=== PATIENT | male | born 1960 | race Caucasian/White ===

== ENCOUNTER → 2018-04-15 | Outpatient (CLI) | payer OTHER ==
[2018-04-15 14:06] LABS: BASOPHILS ABSOLUTE AUTO 0.06 K/mm3 (0.00-0.23); BASOPHILS PERCENT AUTO 1 % (0-2); EOSINOPHILS ABSOLUTE AUTO 0.18 K/mm3 (0.00-0.68); EOSINOPHILS PERCENT AUTO 2 % (0-6); Hematocrit 42.5 % (37.0-53.0); Hemoglobin 14.3 g/dL (13.5-17.5); IMMATURE GRAN ABSOLUTE AUTO 0.03 K/mm3 (0.00-0.10); IMMATURE GRAN PERCENT AUTO 0 % (0-1); LYMPHOCYTES ABSOLUTE AUTO 2.02 K/mm3 (0.84-5.20); LYMPHOCYTES PERCENT AUTO 23 % (21-46); MONOCYTES ABSOLUTE AUTO 0.67 K/mm3 (0.16-1.47); MONOCYTES PERCENT AUTO 8 % (4-13); Mean Corpuscular HGB 29.9 pg (26.0-34.0); Mean Corpuscular HGB Conc 33.6 g/dL (31.5-36.5); Mean Corpuscular Volume 89 fL (80-100); Mean Platelet Volume 11.6 fL (9.1-12.4); NEUTROPHILS ABSOLUTE AUTO 5.66 K/mm3 (1.96-9.15); NEUTROPHILS PERCENT AUTO 66 % (41-73); Platelet Count 293 K/mm3 (150-400); RDW Coefficient Variation 13.9 % (11.7-14.2); RDW Standard Deviation 45.1 fL (35.1-46.3); Red Blood Cell Count 4.79 M/mm3 (4.30-5.90); White Blood Cell Count 8.62 K/mm3 (4.00-11.30)
[2018-04-15 15:45] LABS: Alanine Aminotransfer (ALT/SGP 62 U/L (12-78); Albumin, Blood 3.8 g/dL (3.4-5.0); Alk Phos 54 U/L (50-136); Anion Gap 9 mmol/L (6-16); Aspartate Aminotrans (AST/SGOT 40 U/L (12-37); Bilirubin, Total 0.3 mg/dL (0.1-1.0); Blood Urea Nitrogen 11 mg/dL (8-24); Bun/Creatinine Ratio 15.5 (12.0-20.0); CO2, Blood 26 mmol/L (21-32); Calcium, Blood 9.4 mg/dL (8.5-10.1); Chloride, Blood 104 mmol/L (98-108); Creatinine, Blood 0.71 mg/dL (0.60-1.20); Glomerular Filtration Rate >60 (60-); Glucose, Blood 98 mg/dL (70-99); Potassium, Blood 3.7 mmol/L (3.5-5.5); Sodium, Blood 139 mmol/L (136-145); Total Protein, Blood 7.8 g/dL (6.4-8.2)
== END | disposition home or self-care (01) ==
LOC: LAB 13:36 → LAB SHORT 13:36
PROVIDERS: Nurse Practitioner Family
DX: I10 Essential (primary) hypertension (principal); B18.2 Chronic viral hepatitis C
CPT/HCPCS: 80053; 82105; 85025

== ENCOUNTER 2025-06-23 11:46 | Inpatient (IN) | payer OTHER ==
[~2025-06-23] VITALS: Ht 182.9 cm; Wt 62.6 kg
[2025-06-23 12:30] LABS: BASOPHILS ABSOLUTE AUTO 0.06 K/mm3 (0.00-0.23); BASOPHILS PERCENT AUTO 0 % (0-2); EOSINOPHILS ABSOLUTE AUTO 0.02 K/mm3 (0.00-0.68); EOSINOPHILS PERCENT AUTO 0 % (0-6); Hematocrit 39.2 % (37.0-53.0); Hemoglobin 13.4 g/dL (13.5-17.5); IMMATURE GRAN ABSOLUTE AUTO 0.05 K/mm3 (0.00-0.10); IMMATURE GRAN PERCENT AUTO 0 % (0-1); LYMPHOCYTES ABSOLUTE AUTO 1.05 K/mm3 (0.84-5.20); LYMPHOCYTES PERCENT AUTO 6 % (21-46); MONOCYTES ABSOLUTE AUTO 1.37 K/mm3 (0.16-1.47); MONOCYTES PERCENT AUTO 8 % (4-13); Mean Corpuscular HGB Conc 34.2 g/dL (31.5-36.5); Mean Corpuscular Volume 83 fL (80-100); NEUTROPHILS ABSOLUTE AUTO 14.07 K/mm3 (1.96-9.15); NEUTROPHILS PERCENT AUTO 85 % (41-73); NRBC ABSOLUTE 0.00 K/mm3 (0.00-0.02); NRBC Auto 0.0 /100 WBC (0.0-0.2); Platelet Count 372 K/mm3 (150-400); RDW Coefficient Variation 14.0 % (11.7-14.2); RDW Standard Deviation 42.2 fL (35.1-46.3)
[2025-06-23 12:32] LABS: Prothrombin Time Results 10.9 Sec (9.7-11.5)
[2025-06-23 12:42] LABS: Alanine Aminotransfer (ALT/SGP 48.0 U/L (12-78); Albumin, Blood 3.6 g/dL (3.4-5.0); Albumin/Globulin Ratio 0.9 (0.8-1.8); Anion Gap 6.0 mmol/L (3-11); Aspartate Aminotrans (AST/SGOT 42.0 U/L (12-37); Bilirubin, Total 0.7 mg/dL (0.1-1.0); Blood Urea Nitrogen 11.0 mg/dL (8-24); CO2, Blood 27.0 mmol/L (21-32); Calcium, Blood 9.3 mg/dL (8.5-10.1); Chloride, Blood 107.0 mmol/L (98-108); Creatinine, Blood 0.82 mg/dL (0.60-1.20); Globulin, Blood 4.0 g/dL (2.2-4.0); Glucose, Blood 130.0 mg/dL (70-99); Magnesium, Blood 1.7 mg/dL (1.6-2.4); Potassium, Blood 3.3 mmol/L (3.5-5.5); Sodium, Blood 137.0 mmol/L (136-145); Total Protein, Blood 7.6 g/dL (6.4-8.2)
[2025-06-23 13:44] LABS: Ethanol (Alcohol), Blood, Med <3 mg/dL; Salicylate 3.5 mg/dL (2.8-20.0)
[2025-06-23 14:35] LABS: Source, Urine Clean Catch
[2025-06-23 14:50] LABS: Bilirubin, Urine Neg (Neg); Glucose Qualitative, Urine Neg (Neg); Ketones, Urine 3+ (Neg); Leukocyte Esterase, Urine Neg (Neg); Protein, Urine 1+ (Neg); Specific Gravity, Urine 1.010 (1.003-1.022); Urobilinogen, Urine NORM (Normal)
[2025-06-23 14:58] LABS: Color, Urine Pale Yellow (P-Yellow)
[2025-06-23 15:01] LABS: White Blood Cells, Urine 0-2 /hpf (0-5)
[2025-06-23 15:06] LABS: U Amphetamine Screen Not Detected; U Barbituate Screen Not Detected; U Benzodiazapine Screen Not Detected; U Buprenorphine Screen Not Detected; U Cannabinoids Screen DETECTED; U Cocaine Screen Not Detected; U Methadone Screen Not Detected; U Methamphetamine Screen Not Detected; U Opiates Screen Not Detected; U Oxycodone Screen Not Detected; U Phencyclidine Screen Not Detected
[2025-06-23 16:41] LABS: Thyroid Stimulating Hormone 0.608 uIU/mL (0.360-4.800)
[2025-06-23 16:59] VITALS: BP 186/117
[2025-06-23] MEDS ORDERED: HydrALAZINE HCl 20 MG / ML 1ML Vial IV PRN (17:30)
--- NOTE | 2025-06-23 17:30 | NUR ---
ADMIT NOTE- PT ARRIVED ON MEDICAL FLOOR, SPEECH IS SLURRED, FACIAL DROOP IS BILATERAL, PT HAS WEAKNESS IN BOTH HANDS AND BOTH FEET, WHEN THIS RN ASKS HIM TO PERFORM AN ACTION SOMETIMES HE DOES IT AND SOMETIMES HE DOES THE OPPOSITE. CALLED DR HI THE PT NOW HAS A DIET ORDER. SERIOUS CONCERN FOR ASPIRATION ON THIS PT. NURSE BEDSIDE SWALLOW MAY SHOW THIS TIME HE CAN SWALLOW BUT HIS DIFFICULTY IS UNPREDICTABLE, SOMETIMES RIGHT AND SOMETIMES LEFT. RECIEVED NPO ORDERS AND SPEECH THERAPY AIMEE
--- NOTE | 2025-06-23 19:28 | NUR ---
SHIFT SUMMARY- PT HAS HAD NO ACUTE CHANGE SINCE ARRIVING ON MEDICAL FLOOR. PT HAS WOUNDS, PHOTOS TAKEN AND PLACED IN THE CHART. DASILVA WAS PLACED IN THE ED. MD AWARE. PT HAS SLIGHT SOLID WASTE COLLECTOR WITH THE RIGHT HAND, NONE WITH THE LEFT. INVOLONTARY GROSS MOTOR MOVEMENT OF THE RIGHT UPPER. LOWER AND LEFT UPPER EXTREMITY. BEDSIDE REPORT COMPLETED WITH THE NIGHT RN. PT LEFT AC IV DRESSING WAS COMING OFF. THE PT WAS SWEATY, OLD DRESSING REMOVED AND NEW ONE PLACED. IV FLUSHES WELL SL AT THE TIME OF BEDSIDE REPORT. PT HAS ELEVATED BP, THE MD WANTS TO ALLOW PERMISSIVE HYPERTENSION. ADMISSION IS COMPLETED TO THE BEST OF THIS RN'S ABILITY. THE PT CAN NOT ANSWER QUESTIONS WELL AND SPEECH IS UNCLEAR. PT IN BED, ON ROOM AIR, TELE SIN WITH PVC'S AT 62, CALL LIGHT IN REACH, DELIO SCORE IS 8. NIGHT RN AWARE, PT NEEDS FREQUENT REPOSITIONING. NO CURRENT S&S OF DISTRESS NOTED.
[2025-06-23 21:23] VITALS: BP 157/104
[2025-06-24 01:19] VITALS: BP 158/116
[2025-06-24 04:24] VITALS: BP 153/113
[2025-06-24 05:44] LABS: BASOPHILS ABSOLUTE AUTO 0.07 K/mm3 (0.00-0.23); BASOPHILS PERCENT AUTO 1 % (0-2); EOSINOPHILS ABSOLUTE AUTO 0.10 K/mm3 (0.00-0.68); EOSINOPHILS PERCENT AUTO 1 % (0-6); Hematocrit 44.7 % (37.0-53.0); Hemoglobin 14.9 g/dL (13.5-17.5); IMMATURE GRAN ABSOLUTE AUTO 0.05 K/mm3 (0.00-0.10); IMMATURE GRAN PERCENT AUTO 0 % (0-1); LYMPHOCYTES ABSOLUTE AUTO 1.84 K/mm3 (0.84-5.20); LYMPHOCYTES PERCENT AUTO 14 % (21-46); MONOCYTES ABSOLUTE AUTO 1.23 K/mm3 (0.16-1.47); MONOCYTES PERCENT AUTO 10 % (4-13); Mean Corpuscular HGB Conc 33.3 g/dL (31.5-36.5); Mean Corpuscular Volume 85 fL (80-100); NEUTROPHILS ABSOLUTE AUTO 9.55 K/mm3 (1.96-9.15); NEUTROPHILS PERCENT AUTO 74 % (41-73); NRBC ABSOLUTE 0.00 K/mm3 (0.00-0.02); NRBC Auto 0.0 /100 WBC (0.0-0.2); Platelet Count 382 K/mm3 (150-400); RDW Coefficient Variation 14.3 % (11.7-14.2); RDW Standard Deviation 44.1 fL (35.1-46.3)
[2025-06-24 06:03] LABS: Alanine Aminotransfer (ALT/SGP 63.0 U/L (12-78); Albumin, Blood 3.7 g/dL (3.4-5.0); Albumin/Globulin Ratio 0.9 (0.8-1.8); Anion Gap 8.0 mmol/L (3-11); Aspartate Aminotrans (AST/SGOT 111.0 U/L (12-37); Bilirubin, Total 0.7 mg/dL (0.1-1.0); Blood Urea Nitrogen 12.0 mg/dL (8-24); CO2, Blood 27.0 mmol/L (21-32); Calcium, Blood 9.8 mg/dL (8.5-10.1); Chloride, Blood 107.0 mmol/L (98-108); Creatinine, Blood 0.83 mg/dL (0.60-1.20); Globulin, Blood 4.2 g/dL (2.2-4.0); Glucose, Blood 105.0 mg/dL (70-99); Potassium, Blood 3.4 mmol/L (3.5-5.5); Sodium, Blood 139.0 mmol/L (136-145); Total Protein, Blood 7.9 g/dL (6.4-8.2)
--- NOTE | 2025-06-24 06:48 | NUR ---
SHIFT SUMMARY PT IS PLEASANT ALTHOUGH UPSET HE IS NPO. EXPLAINED TO PT SAFETY ASPIRATION RISK NEEDING TO BE EVALUATED BY ST IN AM. PT STATES "ALRIGHT" EACH TIME HE IS REMINDED. PT ATTEMPTED TO CLIMB OUT OF BED 3X DURING NIGHT. REMINDED PT HE IS ON BEDREST AND NEEDS TO STAY IN BED FOR SAFETY. BREAK NURSE USED LIFT TO PUT PT IN RECLINER. PT KICKED AND JERKED UNTIL HE WAS ALMOST COMPLETELY OUT OF THE CHAIR. THIS RN WITH ASSISTANCE FROM 2 OTHER STAFF MEMBERS USED LIFT TO GET PT BACK INTO BED AND RESTATED NEED TO KEEP PT IN BED. PT RESTING PEACEFULLY.
[2025-06-24 07:39] VITALS: BP 181/119
[2025-06-24] MEDS ORDERED: Enoxaparin 40 MG/0.4 ML SYR SC SCH (09:00)
[2025-06-24] MEDS ORDERED: Potassium Chl 10MEQ/Water100ML 100 ML IV ONE (09:10)
[2025-06-24 11:10] VITALS: BP 182/119
[2025-06-24] MEDS ORDERED: NS 250 ML IV PRN (11:25)
--- NOTE | 2025-06-24 14:37 | NUR ---
MET WITH PATIENT. DISCUSSED CASE WITH BSRN. PATIENT IS CURRENTLY SITTING UP AND ABLE TO ANSWER QUESTIONS. PATIENT IS PENDING MRI. PATIENTS BROTHER BLANCO [phone] IS NOT CURRENTLY ON CHART. BROUGHT INFORMATION TO MEDICAL RECORDS TO ADD TO PATIENTS CHART
[2025-06-24 17:02] VITALS: BP 186/118
--- NOTE | 2025-06-24 18:30 | NUR ---
SHIFT SUMMARY PATIENT ALERT AND INTERACTIVE. PATIENT IMPULSIVE AND WANTING TO SIT AT BEDSIDE MULTIPLE TIMES TODAY. PATIENT CONTINUES TO HAVE SLURRED HEAVY SPEECH. R LEG NOTED TO BE RESTLESS AT TIMES R ARM FLACID. L ARM WITH GROSS MOTOR MOVEMENT. PATIENT ABLE TO WORK WITH THERAPY TODAY AND STAND AT BEDSIDE. MRI DONE TODAY. BROTHER UPDATED RELATED TO PATIENT SITUATION AND ASSISTED WITH ANSWERING MRI QUESTIONS. SPEECH WORKED WITH PATIENT. PATIENT ADVANCED TO PUREED FOOD AND THIN LIQUIDS. COCCYX WOUND COVERED WITH MEPILEX AND PHOTOGRAPH NOTED ON CHART.
[2025-06-24 19:14] VITALS: BP 187/121
[2025-06-25 00:30] VITALS: BP 183/118
[2025-06-25 04:05] VITALS: BP 170/117
--- NOTE | 2025-06-25 05:06 | NUR ---
SHIFT SUMMARY NOC PT A/O TO SELF AND . CONFUSED AND FORGETFUL. BP ELEVATED 187/121 WITH PRN HYDRALAZINE GIVEN PER PARAMETERS. SEVERE L SIDED DEFICITS FROM RECENT CVA AND RESIDUAL R SIDED DEFICITS FROM PREVIOUS CVA. PT ON TELE SINUS WITH PVC'S AND OCCASIOUAL BLOCKED PAC'S, VERIFIED RHYTHM STRIP AND AGREE WITH RATE/RHYTHM. DASILVA IN PLACE DRAINING TO GRAVITY. PT REFUSING TO WEAR SCD'S. PT CURRENTLY RESTING WITH BED ALARM ON, BED IN LOWEST POSITION, AND CALL LIGHT WITHIN REACH.
[2025-06-25 07:10] VITALS: BP 158/116
[2025-06-25] MEDS ORDERED: HydrALAZINE HCl 20 MG / ML 1ML Vial IV PRN (08:50)
[2025-06-25 15:43] VITALS: BP 150/103
--- NOTE | 2025-06-25 17:23 | NUR ---
SHIFT SUMMARY PATIENT ALERT AND INTERACTIVE. PATIENT ABLE TO SIT UP AT SIDE OF BED WITH MINIMAL ASSISTANCE. PATIENT WORKED WITH THERAPY AGAIN TODAY. PATIENT HAD BARIUM SWALLOW TODAY. DIET ADVANCED. FAMILY IN TO SEE PATIENT. FAMILY WORKING ON [employer]ICA[employer] TO HELP WITH DISCHARGE PLAN. PATIENT CONTINUES TO NEED ASSISTANCE WITH FEEDING BECAUSE OF WEAKNESS AND PREVIOUS STROKE. PATIENT ABLE TO MAKE NEEDS KNOWN.
[2025-06-25 17:44] LABS: D-Dimer, Quantitative 0.76 mg/L FEU (0.00-0.52); Fibrinogen 399.0 mg/dL (170-430); Prothrombin Time Results 10.9 Sec (9.7-11.5)
[2025-06-25 19:21] VITALS: BP 154/103
[2025-06-26 00:56] VITALS: BP 172/109
[2025-06-26 04:22] VITALS: BP 168/104
--- NOTE | 2025-06-26 05:20 | NUR ---
SHIFT SUMMARY NOC PT A/O TO SELF. PLEASANTLY CONFUSED, BUT COOPERATIVE WITH CARE. BP STILL ELEVATD CLOSE TO PARAMETERS. ON TELE SINUS RHYTHM IN LOW 60'S, RHYTHM STRIP REVIEWED AND AGREE WITH RATE/RHYTHM. DASILVA IN PLACE FOR RETENTION WITH DARK YELLOW URINE. PT CURRENTLY RESTING WITH BED ALARM ON, BED IN LOWEST POSITION, AND CALL LIGHT WITHIN REACH.
[2025-06-26 06:15] LABS: BASOPHILS ABSOLUTE AUTO 0.07 K/mm3 (0.00-0.23); BASOPHILS PERCENT AUTO 1 % (0-2); EOSINOPHILS ABSOLUTE AUTO 0.28 K/mm3 (0.00-0.68); EOSINOPHILS PERCENT AUTO 3 % (0-6); Hematocrit 41.4 % (37.0-53.0); Hemoglobin 14.3 g/dL (13.5-17.5); IMMATURE GRAN ABSOLUTE AUTO 0.03 K/mm3 (0.00-0.10); IMMATURE GRAN PERCENT AUTO 0 % (0-1); LYMPHOCYTES ABSOLUTE AUTO 2.09 K/mm3 (0.84-5.20); LYMPHOCYTES PERCENT AUTO 23 % (21-46); MONOCYTES ABSOLUTE AUTO 1.13 K/mm3 (0.16-1.47); MONOCYTES PERCENT AUTO 12 % (4-13); Mean Corpuscular HGB Conc 34.5 g/dL (31.5-36.5); Mean Corpuscular Volume 84 fL (80-100); NEUTROPHILS ABSOLUTE AUTO 5.68 K/mm3 (1.96-9.15); NEUTROPHILS PERCENT AUTO 61 % (41-73); NRBC ABSOLUTE 0.00 K/mm3 (0.00-0.02); NRBC Auto 0.0 /100 WBC (0.0-0.2); Platelet Count 459 K/mm3 (150-400); RDW Coefficient Variation 14.4 % (11.7-14.2); RDW Standard Deviation 43.8 fL (35.1-46.3)
[2025-06-26 06:41] LABS: Alanine Aminotransfer (ALT/SGP 57.0 U/L (12-78); Albumin, Blood 3.2 g/dL (3.4-5.0); Albumin/Globulin Ratio 0.8 (0.8-1.8); Anion Gap 6.0 mmol/L (3-11); Aspartate Aminotrans (AST/SGOT 61.0 U/L (12-37); Bilirubin, Total 0.8 mg/dL (0.1-1.0); Blood Urea Nitrogen 17.0 mg/dL (8-24); CO2, Blood 30.0 mmol/L (21-32); Calcium, Blood 9.4 mg/dL (8.5-10.1); Chloride, Blood 105.0 mmol/L (98-108); Creatinine, Blood 0.92 mg/dL (0.60-1.20); Globulin, Blood 4.1 g/dL (2.2-4.0); Glucose, Blood 101.0 mg/dL (70-99); Potassium, Blood 4.0 mmol/L (3.5-5.5); Sodium, Blood 137.0 mmol/L (136-145); Total Protein, Blood 7.3 g/dL (6.4-8.2)
[2025-06-26 07:38] VITALS: BP 151/99
[2025-06-26 11:27] VITALS: BP 167/115
[2025-06-26 16:21] VITALS: BP 165/100
--- NOTE | 2025-06-26 18:17 | NUR ---
SHIFT SUMMARY PATIENT ALERT AND INTERACTIVE. UP TO CHAIR WITH THERAPY. PATIENT A 2 PERSON MAX ASSIST BACK TO BED BECAUSE OF FEET NOT MOVING. PATIENT ABLE TO STAND BUT UNABLE TO MOVE. PATIENT CONTINUES TO NEED TO BE ASSISTED WITH MEALS BECAUSE OF LIMITED MOVEMENT OF ARMS. PATIENT ABLE TO MAKE NEEDS KNOWN DRESSING CHANGED ON L SIDE OF COCCYX. WOUND APPEARS TO BE MORE OF AN ABRASION. AREA CLEANSED AND NEW DRY DRESSING APPLIED. NO FAMILY IN TO VISIT TODAY.
[2025-06-26 19:38] VITALS: BP 164/114
[2025-06-27 02:23] LABS: HOMOCYSTEINE, TOTAL 11 umol/L (0-15)
[2025-06-27 05:04] VITALS: BP 150/112
--- NOTE | 2025-06-27 06:45 | NUR ---
SHIFT SUMMARY PT ALERT, ORIENTED TO SELF AND PLACE, ABLE TO MAKE SOME NEEDS KNOWN HOWEVER PT DOES NOT UTILIZE THE CALL LIGHT. NO ACUTE CHANGES OVERNIGHT. PT REPORTS GENERALIZED PAIN, REPOSITIONING MODERATELY EFFECTIVE. PT APPEARED TO SLEEP WELL THIS SHIFT. ASPIRATION AND SAFETY PRECAUTIONS IN PLACE.
[2025-06-27 07:17] VITALS: BP 154/100
[2025-06-27] MEDS ORDERED: Folic Acid 1 MG TAB PO SCH (09:00)
[2025-06-27 10:47] LABS: ANTITHROMBIN, ENZYM (ACTIVITY) 114 % (76-128)
[2025-06-27 11:54] LABS: PROTEIN C FUNCTIONAL 112 % (83-168)
[2025-06-27 12:39] LABS: B2GLYCOPROTEIN 1, IGG ANTIBODY <10 SGU (<=20); B2GLYCOPROTEIN 1, IGM ANTIBODY <10 SMU (<=20)
[2025-06-27 15:19] VITALS: BP 173/103
[2025-06-27 15:36] VITALS: BP 140/99
[2025-06-27 16:38] VITALS: BP 159/98
--- NOTE | 2025-06-27 18:13 | NUR ---
PATIENT COOPERATIVE WITH CARE, LIKES TO SIT AT BEDSIDE WITH ASSISTANCE. PATIENT HAD A FALL THIS AFTERNOON, MD NOTIFIED. NO NEW ORDERS. YELLOW GOWN PLACED ON PATIENT AND BED ALARM RESET. PATIENT ENCOURAGED TO USE CALL LIGHT.
[2025-06-27 18:59] LABS: ANTI-XA QUALITATIVE INTERP Not Performed (Not Present); ANTICOAG MEDICATION NEUTRALIZ Not Performed (Not Performed); DRVVT 1:1 MIX RATIO Not Performed (<=1.20); DRVVT CONFIRMATION RATIO Not Performed (<=1.20); DRVVT SCREEN RATIO 0.81 (<=1.20); HEXAGONAL PHOSPHOLIPID CONFIRM Not Performed s (<=7.9); NEUTRALIZED DRVVT SCREEN RATIO Not Performed (<=1.20); NEUTRALIZED PTT-LA RATIO Not Performed (<=1.20); PROTHROMBIN TIME (PT) 12.4 s (12.0-15.5); PTT-LA RATIO 0.81 (<=1.20); THROMBIN TIME (TT) Not Performed s (<=19.5)
[2025-06-27 19:30] VITALS: BP 149/92
[2025-06-27 23:23] LABS: PROTEIN S AG FREE 78 % (74-147)
[2025-06-28 03:03] LABS: APC RESISTANCE 3.75 (>=2.00); FACTOR V LEIDEN BY PCR Not Done; FACV REF SPECIMEN Not Done
[2025-06-28 03:15] VITALS: BP 168/101
--- NOTE | 2025-06-28 06:28 | NUR ---
SHIFT SUMMARY PT A/Ox3, DISORIENTED TO SITUATION. VERBALIZING MORE, LESS EXPRESSIVE APHASIA NOTED HOWEVER PT DOES NOT USE CALL LIGHT APPROPRIATELY. PT REPORTS "SORE", GENERALIZED PAIN, PRN TYLENOL EFFECTIVE. Q2 TURNS COMPLETED. PT TOLERATED SIPS OF WATER AND WHOLE PILLS WITH APPLESAUCE WELL, NO COUGHING NOTED. EDUCATION PROVIDED ON TAKING SMALL SIPS OF FLUIDS.
[2025-06-28 09:06] VITALS: BP 187/103
[2025-06-28 09:08] VITALS: BP 162/118
[2025-06-28 14:45] VITALS: BP 143/108
--- NOTE | 2025-06-28 17:26 | NUR ---
SHIFT SUMMARY PT CONT LEVEL OF CARE. PT NOTED TO BE A&OX4 AND HAS CALLED APPROPRIATE THIS SHIFT ALONG WITH MAKING NEEDS KNOWN. PT HAS DANGLED AT THE EDGE OF BED FOR MEALS. PT NOTED TO BE ABLE TO FEED HIMSELF BUT CONT WITH NEEDING SOMEONE IN ROOM TO CONT TO REINFORCE TO TAKE SMALL BITES AND SIPS. PT CONT WITH DASILVA CATH AND NOTED TO BE DRAINING YELLOW URINE TO GRAVITY. PT NOTED TO BE WEAKER ON L SIDE VS R SIDE. PLAN IS TO GO TO SNF AWAITING PLACEMENT.
[2025-06-28 19:54] VITALS: BP 160/89
--- NOTE | 2025-06-29 05:26 | NUR ---
PT HAS L ARM WEAKNESS, L FACIAL DROOP. BLE ARE EQUAL IN STRENGTH. PUPILS ARE EQUAL ROUND AND REACTIVE TO LIGHT. PT IS A&OX4 BUT CONFUSED, HE ASKED FOR DEODERANT BUT BEGAN APPLYING IT TO HIS CHEEKS AND LIPS. PT WAS REDIRECTABLE, BUT DID NOT UNDERSTAND WHAT TO DO WITH THE DEODERANT. CHAP STICK WAS GIVEN AND PT USED APPROPRIATELY.
[2025-06-29 05:53] VITALS: BP 158/99
[2025-06-29 07:04] VITALS: BP 145/98
[2025-06-29 15:04] VITALS: BP 142/91
--- NOTE | 2025-06-29 18:30 | NUR ---
SHIFT SUMMARY PT CONT WITH LEVEL OF CARE. PT NOTED TO CONT WITH DIFFICULTY WITH CONTROLLING PAIN AND NEW MEDICATIONS WHERE ADDED THIS SHIFT AND PT STATED THEY HAVE HELPED. [facility] AND [facility].
--- NOTE | 2025-06-29 18:32 | NUR ---
SHIFT SUMMARY PT CONT LEVEL OF CARE WITH NO ACUTE CHANGES NOTED. PT CONT TO AWAIT ON PLACEMENT. PT CONT WITH DASILVA, AND ASSIST WITH EATING. PT HAS STAND PIVOT TO RECLINER FOR MEALS THIS SHIFT c ASSIST X2 WITH FWW AND GB
[2025-06-29 19:28] VITALS: BP 141/107
[2025-06-30 03:58] VITALS: BP 153/102
--- NOTE | 2025-06-30 05:39 | NUR ---
PT HAS L ARM WEAKNESS, L FACIAL DROOP. BLE ARE EQUAL IN STRENGTH. PUPILS ARE EQUAL ROUND AND REACTIVE TO LIGHT. PT IS A&OX4 ANSWERS QUESTIONS APPROPRIATY, FOLLOWS COMMANDS AND MAKES NEEDS KNOWN.
[2025-06-30 07:00] VITALS: BP 150/91
[2025-06-30 15:25] VITALS: BP 167/97
[2025-06-30 19:55] VITALS: BP 155/107
[2025-06-30] MEDS ORDERED: Arginine/Glutamine/Calcium Hmb 1 Packet PO SCH (21:00)
[2025-07-01 02:38] VITALS: BP 159/103
--- NOTE | 2025-07-01 04:39 | NUR ---
NIGHT SUMMARY: PT AOX4 OVERNIGHT, REPO Q 2 HOURS, DASILVA IN PLACE DRAINING APPROPRIATELY. MEPILEX CHANGED TO COCCYX. FLUIDS GIVEN, DRINKING APPROPRIATELY. CALL LIGHT WITHIN REACH AND CARE ROUNDS IN PLACE.
[2025-07-01 07:39] VITALS: BP 154/101
[2025-07-01] MEDS ORDERED: Polyethylene Glycol 3350 17 gm PO PRN (07:50)
[2025-07-01 12:27] LABS: PROTHROMBIN F2 G20210A VARIANT Heterozygous; PT PCR SPECIMEN Whole Blood
[2025-07-01 15:14] VITALS: BP 110/75
--- NOTE | 2025-07-01 19:15 | NUR ---
SUMMARY DR. CHAVEZ WAS NOTIFIED THIS AM OF PATIENT NOT HAVING A BOWEL MOVEMENT DOCUMENTED RECENTLY. 1X DOSE OF LACTULOSE WAS ORDERED WELL SCHEDULED SENNA TO START THIS EVENING. DR CHAVEZ ALSO INCREASED BLOOD PRESSURE MEDICATIONS AND STARTED ONE NEW ONE. PT A/OX4, ANSWERING ALL QUESTIONS APPROPRIATELY, HOWEVER VERY FORGETFUL AND DOES NOT CALL APPROPRIATELY. HIGH FALL RISK, BED ALARM AND CHAIR ALARM IN USE. NONSKID SOCKS ON PATIENT AND YELLOW GOWN ON PT. EATING WELL. BED BATH GIVEN TODAY.
[2025-07-01 19:49] VITALS: BP 150/99
[2025-07-01] MEDS ORDERED: Docusate Sodium/Senna 1 Tab PO SCH (21:00)
[2025-07-02 03:44] VITALS: BP 142/90
--- NOTE | 2025-07-02 05:06 | NUR ---
SHIFT SUMMARY: Pt is admitted for CVA and is a full code. Is alert and able to make needs known. ADLs have been mostly 1p but did not get out of bed. Denies pain or discomfort when asked. IVs to both ACs are patent with dressings that are CDI. berman in place and draining clear yellow urine.
[2025-07-02 07:29] VITALS: BP 133/84
[2025-07-02 16:37] VITALS: BP 133/90
--- NOTE | 2025-07-02 17:17 | NUR ---
SHIFT SUMMARY: PT ORIENTED X3. FORGETFUL AT TIMES. PLEASANT AND COOPERATIVE WITH CARE. PT HAD LARGE INCONTINENT BM THIS SHIFT. DASILVA IN PLACE DRAINING YELLOW URINE TO GRAVITY. NEW MEPILEX APPLIED TO SACRAL REGION. OOB c 2PA USING FWW AND GB. HIGH FALL RISK WITH YELLOW GOWN, BED/CHAIR ALARM ON. VSS. AWAITING PLACEMENT AT THIS TIME. REPORT FROM SPEECH THERAPY THIS AM STATING PTHAS BEEN REFUSING ST X2 DAYS NOW STATING HE SWALLOWS FINE AND DOES NOT NEED THIS SERVICE. SPOKE WITH DR. DONAHUE STATING TO D/C ST ORDER. CALL LIGHT IN REACH. BED IN LOWEST POSITION WITH ALARM ON.
[2025-07-02 19:33] VITALS: BP 151/89
--- NOTE | 2025-07-03 06:22 | NUR ---
SHIFT SUMMARY PT SLEPT INTERMITTENTLY DURING THE NIGHT. WEAKNESS CONTINUES LEFT GREATER THAN RIGHT, AND FACIAL DROOP CONTINUES. PT ABLE TO REPOSITION SELF IN BED. MEPELEX INTACT TO COCCYX, DASILVA DRAINING YELLOW URINE. PT DENIES PAIN DURING THE NIGHT.
[2025-07-03 06:33] VITALS: BP 139/86
[2025-07-03 07:52] VITALS: BP 137/83
[2025-07-03 16:30] VITALS: BP 132/89
--- NOTE | 2025-07-03 17:55 | NUR ---
NO CHANGES IN T STATUS TODAY. ALERT X3, NO C/O PAIN OR SOB
[2025-07-03 19:56] VITALS: BP 141/81
[2025-07-04 05:02] VITALS: BP 127/70
--- NOTE | 2025-07-04 05:37 | NUR ---
SHIFT SUMMARY PT SLEPT LONG INTERVALS DURING THE NIGHT. LEFT SIDED WEAKNESS CONTINUES. OOB TO BATHROOM WITH FWW/GB AND 2 ASSIST. PT CONT/INCONT OF STOOL. MEPELEX INTACT TO COCCYX. PT REPOSITIONS SELF IN BED. DASILVA DRAINING YELLOW URINE. BED ALARM ON FOR SAFETY. PT IMPULSIVE AT TIMES.
[2025-07-04 07:31] VITALS: BP 144/78
[2025-07-04 15:16] VITALS: BP 137/84
--- NOTE | 2025-07-04 17:34 | NUR ---
NO CHANGES FOR TPT TODAY. NO SOB, PAIN OR CHEST PAIN. PT VERY PLEASANT
[2025-07-04 19:31] VITALS: BP 129/79
[2025-07-05 04:52] VITALS: BP 143/95
--- NOTE | 2025-07-05 06:10 | NUR ---
SHIFT SUMMARY NO CHANGES FROM LAST 2 NIGHTS. PT INCONT OF BROWN STOOL X1. DASILVA DRAINING YELLOW URINE. PT ABLE TO REPOSITION SELF IN BED. MEPELEX INTACT TO SACRUM. LEFT SIDED WEAKNESS AND FACIAL DROOP CONTINUE. PT SLEPT LONG INTERVALS DURING THE NIGHT.
[2025-07-05 07:13] VITALS: BP 139/88
[2025-07-05 16:00] VITALS: BP 139/81
--- NOTE | 2025-07-05 16:56 | NUR ---
PATIENT A/O X3, FORGETFUL. VSS, ON RA. DENIES ANY PAIN OR DISCOMFORT. UP WITH 1-2PA, FWW AND GB. CHAIR/BED ALARM IN USE. INCONTINENT OF BOWEL TODAY. TOLERATING DIET AND EATING WELL. DASILVA IN PLACE WITH ADEQUATE U/O. NO NEW CONCERNS THIS SHIFT. AWAITING LTCM AND PLACEMENT.
[2025-07-05 19:26] VITALS: BP 129/89
[2025-07-06 04:52] VITALS: BP 143/89
--- NOTE | 2025-07-06 05:52 | NUR ---
SHIFT SUMMARY PT SLEPT LONG INTERVALS DURING THE NIGHT. INCONT BM X1. DASILVA DRAINING YELLOW URINE. PT WITH LOW GRADE FEVER DURING THE NIGHT- 99.6, 99.7. LEFT SIDED WEAKNESS AND FACIAL DROOP CONTINUE.
[2025-07-06 07:41] VITALS: BP 136/80
[2025-07-06 15:27] VITALS: BP 134/75
--- NOTE | 2025-07-06 18:02 | NUR ---
SHIFT SUMMARY: A&OX3-4 THIS SHIFT. COOPERATIVE WITH CARE PROVIDED. PT OUT OF BED A FEW TIMES TO SIT UP IN CHAIR. CONTINUES TO HAVE SIGNIFICANT DEFICITS AND WEAKNESS ON THE PTs LEFT SIDE. DASILVA CATHETER REMOVED THIS SHIFT. PT HAS HAD 2 CONTINENT VOIDS SINCE REMOVAL. MEDICATED PER EMAR. BREATHING EQUAL AND NON LABORED. HOB ELEVATED EATING DINNER AT THIS TIME. BED LOCKED AND IN THE LOWEST POSITION. CALL LT WITHIN REACH.
[2025-07-06 20:24] VITALS: BP 157/93
--- NOTE | 2025-07-07 04:50 | NUR ---
SUMMARY: PT A/OX3-4 AND SPECIFIES NEEDS WHEN STAFF IN ROOM BUT IS FORGETFULL AT TIMES. BED ALARM ON FOR FALL RISK AND OCC.IMPULSIVITY. HE CONT'S TO HAVE L.SIDE DEFICITS W/FACIAL DROOP AND WEAKNESS NOTED TO HIS L.SIDE. 1-2PA W/FWW AND GB REQUIRED OOB. HE USES URINAL AD ANGELICA AND IS CONTINENT/INCONTINENT W/ATTENDS CHANGED PRN. MEPILEX TO COCCYX REPLACED THIS SHIFT. NO ACUTE CHANGES, VSS/AFEBRILE. PLACEMENT PENDING INSURANCE AUTHORIZATION. WILL REPORT TO DAY RN.
[2025-07-07 05:06] VITALS: BP 139/90
[2025-07-07 07:40] VITALS: BP 118/82
[2025-07-07 15:42] VITALS: BP 118/80
--- NOTE | 2025-07-07 18:02 | NUR ---
SHIFT SUMMARY PT AOX3-4, 2 ASSIST TO THE BSC. BM THIS SHIFT. BA ON. NO ACUTE CHANGES OR COMPLAINTS. PT REPOSITIONS SELF IN BED. WAITING ON SNF AND INSURANCE AUTH. CALL LIGHT WITHIN REACH, BED LOCKED AND IN THE LOWEST POSITION. WILL REPORT TO ONCOMING NURSE.
[2025-07-07 19:21] VITALS: BP 128/79
[2025-07-08 03:47] VITALS: BP 150/88
--- NOTE | 2025-07-08 05:31 | NUR ---
RESIDENTIAL CARPENTER SUMMARY NO ACUTE CHANGES. MONITORED PT'S URINE OUTPUT. PT USING URINAL AND HAVIN INCONTINENCE. 1 COMPLETE BED CHANGE DONE. PT VOIDING REGLARLY, BLADDER SOFT AND NON TENDER. BED ALARM IN PLACE. CALL LIGHT ACCESSIBLE. REGULAR INTERVAL ROUNDING COMPLETE. CARE WILL CONTINUE UNTIL REPORT GIVEN TO ONCOMING NURSE.
[2025-07-08 08:03] VITALS: BP 133/81
[2025-07-08 15:34] VITALS: BP 135/82
[2025-07-08 19:23] VITALS: BP 144/80
--- NOTE | 2025-07-08 19:34 | NUR ---
NO ACUTE CHANGES. PT UP TO CHAIR FOR MEALS WITH 2 PERSON ASSIST. IMPULSIVE AT TIMES. CONT/INCONT. PENDING PLACEMENT
[2025-07-09 03:48] VITALS: BP 133/96
--- NOTE | 2025-07-09 04:07 | NUR ---
Shift Summary AOx3. Impulsive, sets bed alarm off to use urinal at the bedside. Independent with urinal usage in bed. Able to make needs known after setting alarm off. Bed alarm on, patient does not use call light appropriately. 1-2p w/ gb to ambulate. Mepilex to coccyx for prevention. DC pending Medicaid application approval and placement. Slept well through the night. No acute changes.
[2025-07-09 07:50] VITALS: BP 127/91
--- NOTE | 2025-07-09 17:52 | NUR ---
DAY SUMMARY NO ACUTE CHANGES THIS SHIFT, VSS, BEDRESTING AT THIS TIME, CALL LIGHT IN REACH, BED ALARM ACTIVE, WILL CONT TO MONITOR UNTIL REPORT GIVEN TO ONCOMING NURSE.
[2025-07-09 19:35] VITALS: BP 134/75
[2025-07-10 04:01] VITALS: BP 132/82
--- NOTE | 2025-07-10 06:02 | NUR ---
Shift Summary Patient voiding well using urinal. Denies pain. Pleasant. No acute events overnight. Meds whole 1 @ time w/ applesauce or puree. Awaiting LTC placement d/t multiple SNF refusals and medicaid approval.
[2025-07-10 08:07] VITALS: BP 123/87
[2025-07-10 15:57] VITALS: BP 116/84
--- NOTE | 2025-07-10 18:12 | NUR ---
SHIFT SUMMARY A/OX3, IMPULSIVE AT TIMES. LARGE BM AND BED BATH GIVEN THIS SHIFT. DENIES PAIN OR SOB. NO ACUTE CHANGES.
[2025-07-10 20:03] VITALS: BP 146/96
[2025-07-11 03:53] VITALS: BP 143/95
--- NOTE | 2025-07-11 06:07 | NUR ---
SHIFT SUMMARY A/Ox3, DISORIENTED TO SITUATION. VSS ON RA. NO ACUTE CHANGES OVERNIGHT. VOIDING WITH URINAL, SOME INCONTINENCE NOTED. PT DENIES PAIN, NAUSEA OR OTHER COMPLAINTS. SAFETY PRECAUTIONS IN PLACE.
[2025-07-11 07:34] VITALS: BP 136/89
--- NOTE | 2025-07-11 09:00 | NUR ---
pt laying in bed watching tv, a/ox3-4, pleasant and cooperative with care, a bit impulsive, follows commands well, denies pain, lungs are clear t/o, on r/a, no cough noted, hrr, no edema noted, ppp+1, cap refill <3 sec, vs stable,a febrile, piv to lac site is clear and patent, btx4, abd flat soft nontender, voids via urinal, skin c/w/d, maew left gold burnisher is weaker than right, right leg is weak but can move feet and dpfe is strong, jorge, call light in reach.
[2025-07-11 15:34] VITALS: BP 124/79
--- NOTE | 2025-07-11 18:09 | NUR ---
pt had an uneventful day, no acute changes this shift, call light in reach.
[2025-07-11 19:53] VITALS: BP 143/87
[2025-07-12 04:28] VITALS: BP 119/80
[2025-07-12 04:49] VITALS: BP 115/93
--- NOTE | 2025-07-12 06:32 | NUR ---
SHIFT SUMMARY PT A/Ox3, DISORIENTED TO SITUATION. VSS ON RA. NO ACUTE CHANGES OVERNIGHT. NO ADVERSE EVENTS NOTED WITH SWALLOWING. PT USED CALL LIGHT APPROPRIATELY X 1. APPEARED TO SLEEP WELL. PT DENIES PAIN, SOB, NAUSEA.
[2025-07-12 07:12] VITALS: BP 133/88
--- NOTE | 2025-07-12 08:41 | NUR ---
Pt laying in bed at the bottom of the bed, watching tv, a/ox3-4, pleasant and cooperative with care follows commands well, denies complaints of pain, lungs are clear t/o, resp even and unlabored, no cough noted, hrr, no edema noted, ppp+1, cap refill <3 sec, vs stable, afebrile, piv to lac site is clear and patent, btx4, abd flat soft nontender, voids without diff, skin has mepilex on coccyx, with scattered scabs, left leg weaker, reports his symptoms this time was right arm, residential energy auditor are eqal, sits himself up in bed and moves himself around indep, jorge, call light in reach.
[2025-07-12 15:59] VITALS: BP 127/82
--- NOTE | 2025-07-12 18:41 | NUR ---
no acute changes this shift, sits up on side of the bed, he feels hes improving, call light in reach.
--- NOTE | 2025-07-12 19:15 | NUR ---
BEDSIDE REPORT GIVEN. PT IN BED WATCHING TV. ON RA. RESP E/U. PARTICIPATED IN BS SHIFT REPORT. STATES NEEDS APPROPRIATELY. WILL CONTINUE TO PROVIDE CARE T/O SHIFT. CALL LT IN REACH. NO NEEDS AT THIS TIME.
[2025-07-12 19:36] VITALS: BP 150/97
--- NOTE | 2025-07-12 22:31 | NUR ---
PT RESTING QUIETLY. RESP E/U ON RA. CALL LT IN REACH.
--- NOTE | 2025-07-13 00:28 | NUR ---
PT RESTING QUIETLY. BED ALARM ON. CALL LT IN REACH.
--- NOTE | 2025-07-13 02:20 | NUR ---
CONTINUES TO REST QUIETLY. BED ALARM ON. CALL LT IN REACH.
[2025-07-13 04:43] VITALS: BP 127/85
--- NOTE | 2025-07-13 06:07 | NUR ---
SHIFT SUMMARY: NO ACUTE CHANGES. PT RESTED WELL T/O NIGHT. TOOK MEDS WHOLE IN APPLESAUCE WITHOUT DIFFICULTY, NO CHOKING OR COUGHING. USED URINAL IN BED INDEPENDENTLY. ABLE TO REPOSITIONED SELF IN BED. BED ALARM ON, PT DID NOT TRY AND GET OUT OF BED DURING THE NIGHT. ON RA. NO COMPLAINTS OF PAIN OR NAUSEA. STATES HE GETS A LITTLE SOB AT TIMES. PLAN IS PLACEMENT. WILL CONTINUE TO PROVIDE CARE UNTIL SHIFT REPORT TO ONCOMING NURSE. CALL LT IN REACH.
[2025-07-13 07:31] VITALS: BP 142/81
[2025-07-13 15:43] LABS: HEPATITIS C AB CIA INTERP High Pos (Negative); HEPATITIS C ANTIBODY CIA INDEX >11.00 IV
[2025-07-13 15:47] VITALS: BP 112/72
--- NOTE | 2025-07-13 17:12 | NUR ---
SHIFT SUMMARY: A&OX4 THROUGHOUT SHIFT, BUT CAN BE FORGETFUL. COOPERATIVE WITH CARE. AWAITING PLACEMENT TO D/C. FACILITY REPRESENTITIVES IN TO SEE AND SPEAK WITH PT. PT IS AMBULATORY TO THE BR WITH A 2P ASSIST AND IS A 1P ASSIST TO TRANSFER TO THE CHAIR. NO IV ACCESS ORDER PLACED THIS AFTERNOON. REPOSITIONS SELF IN BED INDEPENDENTLY. LYING IN BED AT THIS TIME. BED LOCKED AND IN THE LOWEST POSITION. BREATHING EQUAL AND NONLABORED. CALL LT WITHIN REACH. BED ALARM SET FOR SAFETY.
[2025-07-13 20:05] VITALS: BP 139/81
[2025-07-14 03:18] VITALS: BP 146/83
--- NOTE | 2025-07-14 06:08 | NUR ---
Shift Summary No acute changes. Pt slept well t/o the night. Using urinal at bedside. Answers questions is short one word answers, usually yes or no. Pt AOx3-4, some confusion.
[2025-07-14 07:20] VITALS: BP 129/87
[2025-07-14 15:50] VITALS: BP 131/95
--- NOTE | 2025-07-14 16:06 | NUR ---
PATIENT AWAKE AND COOPERATIVE WITH CARES TODAY. CALL LIGHT USED WHEN NEEDING ASSISTANCE, FAMILY AT BEDSIDE FOR PAPERWORK ASSISTANCE TO PLACE PATIENT IN [facility] HOME WHEN AVAILABILITY COMES UP. PATIENT ABLE TO ANSWER SOME QUESTIONS.
[2025-07-14 19:44] VITALS: BP 131/82
[2025-07-14 22:44] LABS: HCV QNT BY NAAT (IU/ML) 1710000 IU/mL; HCV QNT BY NAAT (LOG IU/ML) 6.23; HCV QNT BY NAAT INTERP Detected (Not Detected)
[2025-07-15 03:55] VITALS: BP 140/89
--- NOTE | 2025-07-15 05:51 | NUR ---
SHIFT SUMMARY A&OX4. ABLE TO MAKE NEEDS KNOWN. FORGETFUL AND REPEATS HIMSELF. PT USED THE URINAL NEEDED THROUGHOUT THE NIGHT AND HAD A BM AT START OF SHIFT. HE WAS ABLE TO SLEEP RESTFULLY IN HIS BED AT LOWEST POSITION WITH CALL LIGHT WITHIN REACH.
[2025-07-15 07:20] VITALS: BP 140/93
[2025-07-15] MEDS ORDERED: AMLO5 PO (11:59)
[2025-07-15] MEDS ORDERED: ACET325 PO (11:59)
[2025-07-15] MEDS ORDERED: JUVEN PACKET1 EAC3 PO (11:59)
[2025-07-15] MEDS ORDERED: ASPI81CH PO (12:00)
[2025-07-15] MEDS ORDERED: DOCUZEN 8.6-501 EACH PO (12:00)
[2025-07-15] MEDS ORDERED: ATOR80 PO (12:00)
[2025-07-15] MEDS ORDERED: FOLI1 PO (12:02)
[2025-07-15] MEDS ORDERED: Prinivil10 MG PO (12:03)
[2025-07-15] MEDS ORDERED: MIRALAX17 GM PO (12:03)
[2025-07-15] MEDS ORDERED: B-1100 M1 PO (12:04)
[2025-07-15 15:47] VITALS: BP 132/100
--- NOTE | 2025-07-15 17:37 | NUR ---
PATIENT IN BED RESTING TODAY, ASKS FOR HELP NEEDED OTHERWISE NO CHANGES TODAY. TAKES MEDICATIONS AND COOPERATIVE WITH CARE.
[2025-07-15 19:41] VITALS: BP 137/92
[2025-07-16 02:35] VITALS: BP 131/83
[2025-07-16 07:34] VITALS: BP 137/91
--- NOTE | 2025-07-16 07:40 | NUR ---
SHIFT SUMMARY AT START OF SHIFT, PT LYING IN BED. WITH GUSSET EDGER ASSISTANCE, PT BOOSTED UP IN BED. PT RESTING COMFORTABLY AT THIS TIME. APPROX 1999, PT CALLED TO HAVE TV TURNED OFF SO HE CAN GET SOME SLEEP. PT SLEPT SOUNDLY THROUGH MOST OF NIGHT. CALL LIGHT IN REACH. PT DENIES PAIN AT THIS TIME.
[2025-07-16 10:32] VITALS: BP 132/87
[2025-07-16 14:50] VITALS: BP 116/82
--- NOTE | 2025-07-16 18:33 | NUR ---
SHIFT SUMMARY: NO NEW OR ACUTE CHANGES DURING THIS SHIFT. PLAN TO DISCHARGE [facility] SUNDAY. PLAN OF CARE ONGOING. WILL CONTINUE TO MONITOR.
[2025-07-16 19:45] VITALS: BP 131/87
[2025-07-17 04:56] VITALS: BP 134/84
--- NOTE | 2025-07-17 05:11 | NUR ---
SHIFT SUMMARY PT A&Ox3. FLAT EFFECT. NO ACUTE CHANGES. NO C/O PAIN. VSS. BED ALARM ON. BED IN LOWEST POSITION AND CALL LIGHT IN REACH.
[2025-07-17 07:11] VITALS: BP 138/90
[2025-07-17 15:24] VITALS: BP 128/87
--- NOTE | 2025-07-17 18:11 | NUR ---
PATIENT RESTED IN BED TODAY, TAKES MEDICATION WITHOUT ISSUES, ABLE TO EXPRESS NEEDS WHEN NEEDING TO GET UP FOR BATHROOM. WAITING PLACEMENT ON SUNDAY THE 07/20/25. NO CONCERNS. WAS NOT ABLE TO VERIFY WITH PATIENT IF HE WOULD LIKE HOME HEALTH AT HIS NEW RESIDENCE. PATIENT WAS SLEEPING UNTIL DINNER ARRIVED.
[2025-07-17 19:50] VITALS: BP 131/94
[2025-07-18 05:52] VITALS: BP 149/103
[2025-07-18 05:53] VITALS: BP 145/96
--- NOTE | 2025-07-18 06:36 | NUR ---
Shift Summary AO, forgetful. Able to make needs known. Slept well through the night, voiding in urinal like usual. Declined stool softners and voiced no pain. Fluid PO intake is good. Uneventful night.
[2025-07-18 08:11] VITALS: BP 150/91
[2025-07-18 16:13] VITALS: BP 123/77
--- NOTE | 2025-07-18 18:48 | NUR ---
END OF SHIFT PT PLEASANT, QUIET, ABLE TO MAKE NEEDS KNOWN. PLAN TO DISCHARGE ON SUNDAY. PT REQUESTING HIS WALLET. PT DOESNT HAVE A WALLET IN HIS BELONGINS NOR DOES HE HAVE ANYTHING IN A LOCKED BOX IN HIS ROOM, HE LATER SAYS HE ISNT SURE THAT HE BROUGHT IT IN AND WOULD LIKE ME TO GO TO HIS HOUSE AND FIND OUT. PT ABLE TO USE HIS URINAL INDEPENTLY TODAY.
[2025-07-18 19:33] VITALS: BP 131/91
[2025-07-19] MEDS ORDERED: Magnesium Hydroxide Conc 10 ML UDC PO PRN (00:40)
[2025-07-19 03:11] VITALS: BP 132/89
[2025-07-19 07:02] VITALS: BP 139/95
--- NOTE | 2025-07-19 07:35 | NUR ---
Shift Summary AOx3. Pleasant. Cooperative. Slept most of the night, received PM meds late because of this. Voiding in urinal with frequent spillage. Had patient sit at the edge of the bed while giving patient spong bathed. Patient reported some dizziness when standing. Denies pain. Patient is requesting a shave and nails to be clipped. Did use emery boards on finger nails. Meds whole 1@ a time w/ puree. Quite an uneventful night.
[2025-07-19 15:49] VITALS: BP 136/94
--- NOTE | 2025-07-19 17:46 | NUR ---
SHIFT SUMMARY PT A&OX3, INTERMITTANTLY CONFUSED. VSS, RA. CONT. INCONT WITH URINAL. DID NOT HAVE BM THIS SHIFT. 1-2 PA TO BSC OR CHAIR. CALLS APPROPRIATLY. PLAN TO DC TO [facility] TOMORROW.
[2025-07-19 19:39] VITALS: BP 137/92
--- NOTE | 2025-07-20 05:55 | NUR ---
Shift Summary AOx3, forgetful. Stayed awake most of the shift. Patient c/o soreness to R shoulder and claims he sprained his shoulder in the past and requesting an amoxicillin shot to that area citing it "takes the soreness away". Explained that amoxicillin is an antibacterial and that he does not have an infection so the doctor will not order it. It appears his pain may be related to having his neck constantly turned to the left in order to watch tv. Offered and patient agreeable to turn the bed so patient can face the tv with head in neutral position to minimize strain on his neck which may be a major contrubuting factor to his R shoulder soreness. Patient eager to be discharge today. Uneventful night.
[2025-07-20 07:52] VITALS: BP 128/92
--- NOTE | 2025-07-20 15:44 | NUR ---
DISCHARGE SUMMARY CLIENT AOX3-4. MEDICATION COMPLIANT. SEEN BY PROVIDER AND DISCHARGE ORDERS RECEIVED. MEDICATION LIST FAXED TO [facility] PER CLIENT REQUEST. DISCHARGE PACKET WAS DISUSSED WITH CLIENT. CLIENT LEFT THE UNIT VIA WHEEL CHAIR WITH NURSING STAFF.
== END 2025-07-20 15:00 | disposition home or self-care (01) | DRG 65 ==
LOC: ER 11:46 → MEDS 11:47 → ENPENDDIS 07-20 11:23 → MEDS 07-20 15:00
PROVIDERS: Student in an Organized Health Care Education/Training Program; ADMIT Family Medicine
PROC: 0T9B70Z Drainage of Bladder with Drainage Device, Via Natural or Artificial Opening (ICD-10-PCS; principal; 2025-07-06)
DX: I63.312 Cerebral infarction due to thrombosis of left middle cerebral artery (principal); G81.94 Hemiplegia, unspecified affecting left nondominant side; F10.10 Alcohol abuse, uncomplicated; I63.412 Cerebral infarction due to embolism of left middle cerebral artery; R29.810 Facial weakness; I10 Essential (primary) hypertension; R29.710 NIHSS score 10; R47.81 Slurred speech; R47.1 Dysarthria and anarthria; D75.838 Other thrombocytosis; D72.829 Elevated white blood cell count, unspecified; F01.50 Vascular dementia, unspecified severity, without behavioral disturbance, psychotic disturbance, mood disturbance, and anxiety; B18.2 Chronic viral hepatitis C; E87.6 Hypokalemia; D64.9 Anemia, unspecified; R13.12 Dysphagia, oropharyngeal phase; L98.8 Other specified disorders of the skin and subcutaneous tissue; R33.9 Retention of urine, unspecified; R47.01 Aphasia; Z88.8 Allergy status to other drugs, medicaments and biological substances; Z79.899 Other long term (current) drug therapy
CPT/HCPCS: 36415; 70450; 70496; 70498; 70551; 71045; 72125; 74230; 80053; 80320; 81001; 81240; 83090; 83735; 83880; 84439; 84443; 84481; 85025; 85300; 85303; 85306; 85307; 85379; 85384; 85610; 85613; 85730; 86146; 86147; 86803; 86850; 86900; 86901; 87522; 92507; 92523; 92526; 92610; 92611; 93005; 93010; 93306; 97110; 97110-CQ; 97112; 97116; 97116-CQ; 97162; 97167; 97530; 97535; 99285-25; A9270; G0378; G0480; J0360; J1650; J3411; J3480; J7050; Q9967